=== PATIENT | female | born 1930 | race Caucasian/White ===

== ENCOUNTER 2016-10-12 16:52 | Inpatient (IN) | payer OTHER ==
[~2016-10-12] VITALS: Ht 152.4 cm; Wt 54.6 kg
[2016-10-12 17:45] LABS: BASOPHIL % 1.3 % (0-2); PLATELET COUNT 235 x10^3mcL (130-400); RED CELL DISTRIBUTION WIDTH 14.4 % (11.5-14.5)
[2016-10-12 17:59] LABS: CALCIUM 8.3 mg/dL (8.5-10.1); CARBON DIOXIDE 29.3 mmol/L (21-32); CHLORIDE SERUM 102 mmol/L (98-107); CREATININE SERUM 0.8 mg/dL (0.6-1.0); GLUCOSE SERUM 98 mg/dL (74-106); POTASSIUM SERUM 3.6 mmol/L (3.5-5.1); SODIUM SERUM 140 mmol/L (136-145)
[2016-10-12 18:03] LABS: ALKALINE PHOSPHATASE 90 U/L (46-116); ALT/SGPT 14 U/L (14-59); AST/SGOT 17 U/L (15-37); BILIRUBIN TOTAL 0.5 mg/dL (0.20-1.00); HDL CHOLESTEROL 60 mg/dL (40-60); TOTAL PROTEIN, SERUM 6.8 g/dL (6.4-8.2)
[2016-10-12 18:06] LABS: ALBUMIN 2.9 g/dL (3.4-5.0); CHOLESTEROL 81 mg/dL (<200)
[2016-10-12 20:22] VITALS: BP 164/75
[2016-10-12 20:29] VITALS: Ht 152.4 cm; Wt 54.6 kg
[2016-10-12 21:06] LABS: UA SPECIFIC GRAVITY <=1.005 (1.005-1.035); microscopic required? YES; urine erythrocyte TRACE (NEGATIVE)
[2016-10-12 21:22] LABS: CHOLESTEROL/HDL RATIO 1.5
[2016-10-12 21:26] LABS: FREE T4 1.15 ng/dL (0.76-1.46)
[2016-10-12 22:10] LABS: T3 TOTAL 0.75 ng/mL
[2016-10-13 05:39] VITALS: BP 162/75
[2016-10-13 09:44] VITALS: BP 121/56
[2016-10-13 11:11] LABS: BASOPHIL % 0.2 % (0-2); PLATELET COUNT 221 x10^3mcL (130-400); RED CELL DISTRIBUTION WIDTH 14.2 % (11.5-14.5)
[2016-10-13 11:21] LABS: CALCIUM 7.7 mg/dL (8.5-10.1); CARBON DIOXIDE 26.2 mmol/L (21-32); CHLORIDE SERUM 104 mmol/L (98-107); GLUCOSE SERUM 253 mg/dL (74-106); MAGNESIUM 1.5 mg/dL (1.8-2.4); PHOSPHOROUS 3.2 mg/dL (2.5-4.9); POTASSIUM SERUM 3.9 mmol/L (3.5-5.1); SODIUM SERUM 138 mmol/L (136-145)
[2016-10-13 13:35] VITALS: BP 134/65
[2016-10-13 17:14] VITALS: BP 159/63
[2016-10-13 22:01] VITALS: BP 158/67
[2016-10-14 06:02] VITALS: BP 147/66
[2016-10-14 07:04] LABS: BASOPHIL % 0.5 % (0-2); PLATELET COUNT 188 x10^3mcL (130-400); RED CELL DISTRIBUTION WIDTH 14.5 % (11.5-14.5)
[2016-10-14 07:09] LABS: CARBON DIOXIDE 27.7 mmol/L (21-32); CHLORIDE SERUM 109 mmol/L (98-107); CREATININE SERUM 0.9 mg/dL (0.6-1.0); GLUCOSE SERUM 101 mg/dL (74-106); MAGNESIUM 1.7 mg/dL (1.8-2.4); PHOSPHOROUS 3.3 mg/dL (2.5-4.9); POTASSIUM SERUM 3.7 mmol/L (3.5-5.1); SODIUM SERUM 143 mmol/L (136-145)
[2016-10-14 09:00] VITALS: BP 149/62
[2016-10-14 17:44] VITALS: BP 129/64
[2016-10-14 22:25] VITALS: BP 132/67
[2016-10-15 05:30] VITALS: BP 138/57
[2016-10-15 06:40] LABS: BASOPHIL % 0.4 % (0-2); PLATELET COUNT 182 x10^3mcL (130-400); RED CELL DISTRIBUTION WIDTH 14.2 % (11.5-14.5)
[2016-10-15 06:45] LABS: CALCIUM 7.4 mg/dL (8.5-10.1); CARBON DIOXIDE 26.8 mmol/L (21-32); CHLORIDE SERUM 109 mmol/L (98-107); CREATININE SERUM 0.8 mg/dL (0.6-1.0); GLUCOSE SERUM 81 mg/dL (74-106); MAGNESIUM 1.7 mg/dL (1.8-2.4); PHOSPHOROUS 3.6 mg/dL (2.5-4.9); POTASSIUM SERUM 3.7 mmol/L (3.5-5.1); SODIUM SERUM 143 mmol/L (136-145)
[2016-10-15 10:15] VITALS: BP 124/65
[2016-10-15] MEDS ORDERED: CIPRO500 MG PO (13:35)
[2016-10-15] MEDS ORDERED: LAC PO (13:35)
[2016-10-15 13:57] VITALS: BP 124/65
== END 2016-10-15 14:29 | disposition home or self-care (01) | DRG 913 ==
LOC: ED 16:52 → EDBD 16:52 → DU 19:19
PROVIDERS: Emergency Medicine; Family Medicine; ADMIT Family Medicine
DX: S39.82XA Other specified injuries of lower back, initial encounter (principal); G93.41 Metabolic encephalopathy; I50.43 Acute on chronic combined systolic (congestive) and diastolic (congestive) heart failure; E43 Unspecified severe protein-calorie malnutrition; N39.0 Urinary tract infection, site not specified; I42.9 Cardiomyopathy, unspecified; D64.89 Other specified anemias; F32.9 Major depressive disorder, single episode, unspecified; E03.9 Hypothyroidism, unspecified; Z87.81 Personal history of (healed) traumatic fracture; Z68.24 Body mass index [BMI] 24.0-24.9, adult; W18.39XA Other fall on same level, initial encounter; Y93.89 Activity, other specified; Y92.098 Other place in other non-institutional residence as the place of occurrence of the external cause
CPT/HCPCS: 83880; 84439; 97110-GP; 97116-GP; 97530-GP; J0360; J0696; J1100; J1885; J2060; J2270; J7030; J7040; Q0092; Q9967